=== PATIENT | female | born 1990 | race Caucasian/White ===

== ENCOUNTER 2019-06-13 05:58 | Inpatient (IN) | payer BC ==
[2019-06-13] MEDS ORDERED: Ibuprofen 600 MG Tab PO PRN (08:11)
--- NOTE | 2019-06-13 08:24 | PCM.LDHP ---
L&D History of Present Illness - General Date of Service: 06/13/19 Admit Problem/Dx: Patient Status Order with Admit Dx/Problem 06/13/19 05:58 Admission Status [Patient Status] [ADT] Routine Admission Diagnosis/Problem Admission Diagnosis/Problem Delivery normal Source of Information: Patient History Limitations: Reports: No Limitations - History of Present Illness Introduction:: Charlene is a 28-year-old female at 39 weeks. She started having contractions about 3 AM, and then in the car,Enroute to the hospital she delivered a baby boy at 5:45 AM. She complains of minimal cramps. Delivery was completed by the ER physician once she arrived by removal of the placenta. She could plans of no fever chills and all other systems are unremarkable. She was scheduled for induction of labor on Tuesday. 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 L&D Exam - Exam Exam: See Below - Vital Signs Vital Signs: Last Vital Signs Temp 97.8 F 06/13/19 06:09 Pulse 71 06/13/19 06:45 Resp 18 06/13/19 06:45 BP 107/76 06/13/19 06:45 Pulse Ox 100 09/04/19 06:09 Weight: 69.853 kg - Exam General: Alert, Oriented HEENT: PERRLA, Conjunctiva Clear, EACs Clear, EOMI, Hearing Intact, Mucosa Moist & Miranda, Nares Patent, Normal Nasal Septum, Posterior Pharynx Clear, TMs Clear Neck: Supple, Trachea Midline Lungs: Clear to Auscultation, Normal Respiratory Effort Cardiovascular: Regular Rate, Regular Rhythm GI/Abdominal Exam: Normal Bowel Sounds, Soft, Non-Tender, No Organomegaly, No Distention, No Abnormal Bruit, No Mass, Pelvis Stable Rectal Exam: Normal Exam, Normal Rectal Tone Genitourinary: Normal external exam, Normal bimanual exam, Normal speculum exam Back Exam: Normal Inspection, Full Range of Motion Extremities: Normal Inspection, Normal Range of Motion, Non-Tender, No Pedal Edema, Normal Capillary Refill Skin: Warm, Dry, Intact Neurological: Cranial Nerves Intact, Reflexes Equal Bilateral Psychiatric: Alert, Normal Affect, Normal Mood - Problem List (1) Precipitous delivery SNOMED Code(s): 720928598, 937491527 ICD Code: O62.3 - PRECIPITATE LABOR Status: Acute Current Visit: Yes (2) H/O: stroke SNOMED Code(s): 067361451 ICD Code: Z86.73 - PRSNL HX OF TIA (TIA), AND CEREB INFRC W/O RESID DEFICITS Status: Chronic Current Visit: Yes (3) MDD (major depressive disorder) SNOMED Code(s): 174475936 ICD Code: F32.9 - MAJOR DEPRESSIVE DISORDER, SINGLE EPISODE, UNSPECIFIED Status: Chronic Current Visit: Yes Qualifiers: Major depression recurrence: recurrent Psychotic features: without psychotic features (4) 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 SNOMED Code(s): 038278479 ICD Code: B00.4 - HERPESVIRAL ENCEPHALITIS Status: Chronic Current Visit : Yes Problem List Initiated/Reviewed/Updated: Yes Orders Last 24hrs: Active Orders 24 hr Category Date Time Status Admission Status [Patient Status] [ADT] Routine ADT 06/13/19 05:58 Active [place] [RC] ASDIRECTED Care 06/13/19 08:11 Active Vital Signs [RC] PFP Care 06/13/19 08:12 Active Regular Diet [DIET] Diet 06/13/19 Breakfast Active CBC WITH AUTO DIFF [HEME] AM Lab 06/14/19 05:11 Ordered Fish Oil/[place]-3 Fatty Acids [Fish Oil] Med 06/13/19 09:00 Ordered 1 each PO DAILY Ibuprofen [Motrin] Med 06/13/19 08:11 Ordered 600 mg PO Q4H PRN L.acidoph,Paracasei, B.lactis [Probiotic] Med 06/13/19 09:00 Ordered 1 cap PO DAILY YSA208/Iron Fumarate/FA/DSS [ 19 Tablet] Med 06/13/19 09:00 Ordered 1 tab PO DAILY Sertraline [Zoloft] Med 06/13/19 09:00 Ordered 50 mg PO DAILY Resuscitation Status Routine Resus Stat 06/13/19 08:11 Ordered Medication Orders Ibuprofen (Motrin) 600 mg PO Q4H PRN PRN Reason: Pain Non-Formulary Medication (Fish Oil/[place]-3 Fatty Acids [Fish Oil]) 1 each PO DAILY SUZANNA Non-Formulary Medication (L.Acidoph,Paracasei, B.Lactis [Probiotic]) 1 cap PO DAILY SUZANNA Non-Formulary Medication (Tla626/Iron Fumarate/Fa/Dss [ 19 Tablet]) 1 tab PO DAILY SUZANNA Sertraline HCl (Zoloft) 50 mg PO DAILY SUZANNA Assessment/Plan Comment:: Admit, obtain labs in the morning;observe continue current meds including Valtrex and Zoloft. She plans breast-feeding
[2019-06-13] MEDS ORDERED: Oxytocin 10 Units/1 ML SDV IM ONE (09:51)
[2019-06-13] MEDS: Sertraline 50 MG Tab PO SCH (10:30)
[2019-06-13] MEDS: Prenatal Multivitamin with Calcium/Folic Acid/Fe Fumarate Cap PO SCH (10:30)
[2019-06-13] MEDS: Fish Oil/Omega-3 Fatty Acids 1 Gm Cap PO SCH (10:30)
[2019-06-13] MEDS: Lactobacillus Rhamnosus GG (Probiotic) Cap PO SCH (10:30)
--- NOTE | 2019-06-14 09:14 | PCM.PNPP ---
- General Info Date of Service: 06/14/19 Subjective Update: Had an episode of vasovagal syncope yesterday. Passed huge clot.Given Pit 10 IU IM. Stable vital signs. No complains this morning Functional Status: Reports: Pain Controlled - Review of Systems General: Reports: No Symptoms Pulmonary: Reports: No Symptoms Cardiovascular: Reports: No Symptoms Gastrointestinal: Reports: No Symptoms Genitourinary: Reports: No Symptoms - Patient Data Vital Signs - Most Recent: Last Vital Signs Temp 98.2 F 06/14/19 00:00 Pulse 82 06/14/19 00:00 Resp 18 06/13/19 07:15 BP 116/62 06/14/19 00:00 Pulse Ox 100 06/13/19 06:09 Weight - Most Recent: 69.853 kg Lab Results - Last 24 Hours: Laboratory Results - last 24 hr 06/13/19 06/14/19 Range/Units 10:00 06:30 WBC 14.4 H 10.1 (4.5-12.0) X10-3/uL RBC 3.45 3.03 L (3.23-5.20) x10(6)uL Hgb 11.2 L 10.0 L (11.5-15.5) g/dL Hct 31.9 28.3 L (30.0-51.3) % MCV 92.4 93.3 (80-96) fL MCH 32.5 33.1 (27.7-33.6) pg MCHC 35.2 35.5 H (32.2-35.4) g/dL RDW 13.2 13.5 (11.5-15.5) % Plt Count 193 179 (125-369) X10(3)uL MPV 7.1 L 7.5 (7.4-10.4) fL Neut % (Auto) 83.6 H 66.0 (46-82) % Lymph % (Auto) 9.3 L 26.3 (13-37) % [place] % (Auto) 6.9 6.5 (4-12) % Eos % (Auto) 0 L 1 (1.0-5.0) % Baso % (Auto) 0 0 (0-2) % Neut # (Auto) 12.1 H 6.6 (1.6-8.3) # Lymph # (Auto) 1.3 2.7 (0.6-5.0) # [place] # (Auto) 1.0 0.7 (0.0-1.3) # Eos # (Auto) 0.0 0.1 (0.0-0.8) # Baso # (Auto) 0.0 0.0 (0.0-0.2) # Med Orders - Current: Current Medications Fish Oil (Fish Oil) 1 gm PO DAILY [facility] Last Admin: 06/13/19 10:30 Dose: 1 gm Ibuprofen (Motrin) 600 mg PO Q4H PRN PRN Reason: Pain Last Admin: 06/13/19 20:08 Dose: 600 mg Lactobacillus Rhamnosus (Culturelle) 1 cap PO DAILY [facility] Last Admin: 06/13/19 10:30 Dose: 1 cap Multivit/Folic Acid/Iron (-U) 1 each PO DAILY [facility] Last Admin: 06/13/19 10:30 Dose: 1 each Sertraline HCl (Zoloft) 50 mg PO DAILY [facility] Last Admin: 06/13/19 10:30 Dose: 50 mg Discontinued Medications Oxytocin (Pitocin) 10 unit IM ONETIME ONE Stop: 06/13/19 09:52 Last Admin: 06/13/19 10:29 Dose: 10 unit - Infant Interaction Infant Disposition, : [place] to Nursery Feeding: Attempted ; Nursed Fair/Poor Support Person: - Recovery Exam Fundal Tone: Firm Fundal Level: At Umbilicus Fundal Placement: Midline Lochia Amount: Moderate Lochia Color: Rubra/Red Perineum Description: Intact, Minimal Bruising/Swelling Episiotomy/Laceration: None Bladder Status: Voiding Urinary Elimination: Voided - Exam General: Alert, Oriented HEENT: Pupils Equal Neck: Supple Lungs: Clear to Auscultation, Normal Respiratory Effort Cardiovascular: Regular Rate, Regular Rhythm GI/Abdominal Exam: Normal Bowel Sounds, Soft, Non-Tender, No Organomegaly, No Distention, No Abnormal Bruit, No Mass, Pelvis Stable Extremities: Normal Inspection, Normal Range of Motion, Non-Tender, No Pedal Edema, Normal Capillary Refill Skin: Warm, Dry, Intact Wound/Incisions: Healing Well Neurological: No New Focal Deficit Psy/Mental Status: Alert, Normal Affect, Normal Mood - Problem List & Annotations (1) Precipitous delivery SNOMED Code(s): 516055151, 432399691 Code(s): O62.3 - PRECIPITATE LABOR Status: Acute Current Visit: Yes (2) H/O: stroke SNOMED Code(s): 501780274 Code(s): Z86.73 - PRSNL HX OF TIA (TIA), AND CEREB INFRC W/O RESID DEFICITS Status: Chronic Current Visit: Yes (3) MDD (major depressive disorder) SNOMED Code(s): 947327447 Code(s): F32.9 - MAJOR DEPRESSIVE DISORDER, SINGLE EPISODE, UNSPECIFIED Status: Chronic Current Visit: Yes Qualifiers: Major depression recurrence: recurrent Psychotic features: without psychotic features (4) 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 Follow up in 6 weeks
--- NOTE | 2019-06-14 10:31 | DISCH ---
DISCHARGE DATE: 06/14/2019 REASON FOR ADMISSION: Precipitous delivery. DISCHARGE DIAGNOSES: 1. Precipitous vaginal delivery. 2. History of herpes simplex encephalitis. 3. History of stroke. 4. Depression. 5. care and examination. BRIEF HISTORY: A 28-year-old female who presented after she delivered in the car en route to the hospital. Placenta was removed in the hospital. She did not sustain any vaginal tears. However, she had some blood clots passed and had a vasovagal syncope episode. Hemoglobin and vital signs remained stable. She is ready to go to home today with no complaints. We will discharge her home on her regular medications. 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 Return to the ED with worsening symptoms. I spent more than 35 minutes in the discharge of the patient. /[id number] MARLYN/MIK
[2019-06-14] MEDS: Sertraline 50 MG Tab PO SCH (11:06)
[2019-06-14] MEDS: Fish Oil/Omega-3 Fatty Acids 1 Gm Cap PO SCH (11:06)
[2019-06-14] MEDS: Prenatal Multivitamin with Calcium/Folic Acid/Fe Fumarate Cap PO SCH (11:06)
[2019-06-14] MEDS: Lactobacillus Rhamnosus GG (Probiotic) Cap PO SCH (11:06)
== END 2019-06-14 13:53 | disposition home or self-care (01) | DRG 560 ==
LOC: FB.OB 05:58
PROVIDERS: ADMIT Family Medicine; ATTEND Family Medicine
PROC: 10E0XZZ Delivery of Products of Conception, External Approach (ICD-10-PCS; principal; 2019-06-13)
DX: O62.3 Precipitate labor (principal); O99.344 Other mental disorders complicating childbirth; F41.9 Anxiety disorder, unspecified; F32.9 Major depressive disorder, single episode, unspecified; Z3A.39 39 weeks gestation of pregnancy; Z86.73 Personal history of transient ischemic attack (TIA), and cerebral infarction without residual deficits; Z37.0 Single live birth; Z79.899 Other long term (current) drug therapy
CPT/HCPCS: 36415; 85025; A9270-GY; J2590